=== PATIENT | female | born 1950 | race African-American/Black ===

== ENCOUNTER 2021-01-28 13:38 | Emergency (ER) | payer OTHER ==
[2021-01-28 13:48] VITALS: BP 127/57; PULSE 78; TEMP 97.4; BMI 27.3
== END 2021-01-28 17:04 | disposition home or self-care (01) ==
LOC: JERFT 13:38
DX: M79.604 Pain in right leg (principal); M25.521 Pain in right elbow
CPT/HCPCS: 73070-TC-RT-FY; 73562-TC-RT-FY; 73590-TC-RT-FY; 73610-TC-RT-FY; 73630-TC-RT-FY; 99285-25

== ENCOUNTER 2022-08-06 11:41 | Emergency (ER) | payer OTHER ==
[2022-08-06 12:00] VITALS: TEMP 97.5; BMI 23.4
[2022-08-06] MEDS ORDERED: FAMOTIDINE 20 MG/50 ML IVPB 20 MG/50 ML MG IVPB ONE ×2 (12:51→13:32)
[2022-08-06] MEDS ORDERED: ACETAMINOPHEN 1000 MG/100 ML BAG IVPB ONE (12:51)
[2022-08-06] MEDS ORDERED: ACETAMINOPHEN INJECTION 100 ML IVPB ONE (13:31)
[2022-08-06 14:20] LABS: BASO % 0.7 % (0-2.0); EOS % 0.2 % (0-4.5); HEMOGLOBIN 13.7 GM/dL (10.7-15.3); LYMPH % 31.1 % (8-40); MCH 32.7 pg (25.7-33.7); MCHC 33.4 g/dl (32.0-36.0); MEAN CELL VOLUME 97.9 fl (80-96); MEAN PLT VOLUME 9.2 fl (7.5-11.1); MONO % 6.2 % (3.8-10.2); NEUT % 61.8 % (42.8-82.8); PLATELET COUNT 264 10^3/uL (134-434); RBC 4.19 M/mm3 (3.60-5.2); RDW 13.2 % (11.6-15.6); WHITE BLOOD COUNT 8.1 K/mm3 (4.0-10.0)
[2022-08-06 14:21] LABS: PH,URINE 6.5 (5.0-8.0); URINE APPEARANCE CLEAR; URINE BILIRUBIN NEGATIVE (NEGATIVE); URINE COLOR YELLOW; URINE GLUCOSE (UA) NEGATIVE (NEGATIVE); URINE KETONE NEGATIVE (NEGATIVE); URINE LEUK ESTERASE NEGATIVE (NEGATIVE); URINE NITRITE NEGATIVE (NEGATIVE); URINE PROTEIN NEGATIVE (NEGATIVE); URINE UROBILINOGEN 0.2 mg/dL (0.2-1.0)
[2022-08-06 14:40] LABS: CHLORIDE 104 mmol/L (98-107); SODIUM 139 mmol/L (136-145)
[2022-08-06 14:42] LABS: CALCIUM 9.8 mg/dL (8.5-10.1)
[2022-08-06 14:43] LABS: BLOOD UREA NITROGEN 10.5 mg/dL (7-18); CO2 28 mmol/L (21-32); GLUCOSE,RANDOM 85 mg/dL (74-106); LIPASE 183 U/L (73-393); MAGNESIUM 2.2 mg/dL (1.8-2.4)
[2022-08-06 14:46] LABS: CREATININE 0.7 mg/dL (0.55-1.3); SGOT/AST 75 U/L (15-37)
[2022-08-06 14:47] LABS: BILIRUBIN,TOTAL 0.4 mg/dL (0.2-1); TOT PROT 9.1 g/dl (6.4-8.2)
[2022-08-06 14:49] LABS: ALK PHOS 114 U/L (45-117)
[2022-08-06 15:14] LABS: ANION GAP 6 MMOL/L (8-16); SGPT/ALT 26 U/L (13-61)
[2022-08-06] MEDS ORDERED: SODIUM CHLORIDE 0.9% 500 ML INFUS.BAG IV ONE (16:23)
[2022-08-06 16:25] LABS: ALBUMIN 3.8 g/dl (3.4-5.0); CALCIUM 9.7 mg/dL (8.5-10.1)
[2022-08-06 16:26] LABS: BLOOD UREA NITROGEN 9.7 mg/dL (7-18)
[2022-08-06 16:28] LABS: CREATININE 0.6 mg/dL (0.55-1.3)
[2022-08-06 16:30] LABS: BILIRUBIN,TOTAL 0.4 mg/dL (0.2-1); TOT PROT 8.2 g/dl (6.4-8.2)
[2022-08-06 19:28] VITALS: BP 127/63; PULSE 76; RESP 18
== END 2022-08-06 19:28 | disposition home or self-care (01) ==
LOC: JER 11:41
PROC: 3E0333Z Introduction of Anti-inflammatory into Peripheral Vein, Percutaneous Approach (ICD-10-PCS; principal; 2022-08-06)
PROC: 3E033GC Introduction of Other Therapeutic Substance into Peripheral Vein, Percutaneous Approach (ICD-10-PCS; 2022-08-06)
DX: R10.13 Epigastric pain (principal)
CPT/HCPCS: 36415; 71045-TC-FY; 72070-TC-FY; 74177-TC; 76705-TC; 80053; 81003; 83690; 83735; 84484; 85025; 93005; 93010; 99285-25; Q9967

== ENCOUNTER 2024-05-09 11:32 | Emergency (ER) | payer OTHER ==
[2024-05-09 11:38] VITALS: BP 121/68; PULSE 83; RESP 17; TEMP 97.9; BMI 27.3
[2024-05-09] MEDS ORDERED: ACETAMINOPHEN 325 MG TABLET (FP) ONE (12:09)
[2024-05-09] MEDS ORDERED: IBUPROFEN 400 MG TABLET (FP) PO ONE (12:10)
[2024-05-09] MEDS: ACETAMINOPHEN 325 MG TABLET (FP) PO ONE (12:12)
[2024-05-09] MEDS: IBUPROFEN 400 MG TABLET (FP) PO ONE (12:12)
== END 2024-05-09 14:14 | disposition home or self-care (01) ==
LOC: JERFT 11:32
DX: S99.922A Unspecified injury of left foot, initial encounter (principal); W10.8XXA Fall (on) (from) other stairs and steps, initial encounter
CPT/HCPCS: 73610-TC-LT-FY; 73630-TC-LT; 99283-25

== ENCOUNTER 2024-07-16 14:49 | Emergency (ER) | payer OTHER ==
[2024-07-16 14:59] VITALS: BMI 27.3
[2024-07-16] MEDS ORDERED: ACETAMINOPHEN INJECTION 100 ML ONE (15:53)
[2024-07-16] MEDS: ACETAMINOPHEN 1000 MG/100 ML BAG IVPB ONE (16:26)
[2024-07-16] MEDS: LACTATED RINGERS SOLUTION 1000 ML INFUS.BAG IV ONE (16:27)
[2024-07-16 16:34] LABS: BASO % 0.3 % (0-2.0); EOS % 0.1 % (0-4.5); HEMATOCRIT 42.5 % (32.4-45.2); LYMPH % 8.6 % (8-40); MCH 32.1 pg (25.7-33.7); MEAN CELL VOLUME 97.1 fl (80-96); MEAN PLT VOLUME 8.7 fl (7.5-11.1); MONO % 8.5 % (3.8-10.2); NEUT % 82.5 % (42.8-82.8); PLATELET COUNT 228 10^3/uL (134-434); RBC 4.38 M/mm3 (3.60-5.2); RDW 12.8 % (11.6-15.6); WHITE BLOOD COUNT 7.6 K/mm3 (4.0-10.0)
[2024-07-16 16:53] LABS: POTASSIUM 4.6 mmol/L (3.5-5.1)
[2024-07-16 16:55] LABS: ALBUMIN 4.1 g/dl (3.4-5.0)
[2024-07-16 16:56] LABS: CALCIUM 9.4 mg/dL (8.5-10.1)
[2024-07-16 16:57] LABS: BLOOD UREA NITROGEN 8.4 mg/dL (7-18)
[2024-07-16 17:00] LABS: CREATININE 0.7 mg/dL (0.55-1.3)
[2024-07-16 17:01] LABS: BILIRUBIN,TOTAL 0.6 mg/dL (0.2-1); TOT PROT 8.9 g/dl (6.4-8.2)
[2024-07-16 17:42] LABS: PH,URINE 6.5 (5.0-8.0); URINE APPEARANCE CLEAR; URINE BILIRUBIN NEGATIVE (NEGATIVE); URINE COLOR YELLOW; URINE GLUCOSE (UA) NEGATIVE (NEGATIVE); URINE KETONE 1+ (NEGATIVE); URINE LEUK ESTERASE NEGATIVE (NEGATIVE); URINE NITRITE NEGATIVE (NEGATIVE); URINE PROTEIN NEGATIVE (NEGATIVE); URINE UROBILINOGEN 0.2 mg/dL (0.2-1.0)
[2024-07-16 17:56] LABS: HIV INTERPRETATION NEGATIVE (NEGATIVE)
[2024-07-16 19:23] VITALS: BP 106/52; PULSE 95; RESP 18; TEMP 99.5
== END 2024-07-16 20:35 | disposition home or self-care (01) ==
LOC: JER 14:49
PROC: 3E033NZ Introduction of Analgesics, Hypnotics, Sedatives into Peripheral Vein, Percutaneous Approach (ICD-10-PCS; principal; 2024-07-16)
DX: M54.6 Pain in thoracic spine (principal); R63.0 Anorexia; R50.9 Fever, unspecified; R00.0 Tachycardia, unspecified; R06.02 Shortness of breath; Z20.822 Contact with and (suspected) exposure to COVID-19
CPT/HCPCS: 0241U-QW; 36415; 71046-TC-FY; 74176-TC; 80053; 81003; 85025; 86803; 87086; 87389; 99285-25; J0131

== ENCOUNTER 2024-07-20 12:59 | Inpatient (IN) | payer OTHER ==
[2024-07-20 13:06] VITALS: BMI 27.5
[2024-07-20 15:16] LABS: BASO % 0.9 % (0-2.0); HEMATOCRIT 44.2 % (32.4-45.2); HEMOGLOBIN 14.8 GM/dL (10.7-15.3); LYMPH % 20.1 % (8-40); MCH 31.9 pg (25.7-33.7); MCHC 33.4 g/dl (32.0-36.0); MEAN CELL VOLUME 95.6 fl (80-96); MEAN PLT VOLUME 8.7 fl (7.5-11.1); MONO % 19.2 % (3.8-10.2); NEUT % 59.8 % (42.8-82.8); PLATELET COUNT 187 10^3/uL (134-434); RBC 4.63 M/mm3 (3.60-5.2); RDW 12.8 % (11.6-15.6); WHITE BLOOD COUNT 4.2 K/mm3 (4.0-10.0)
[2024-07-20 15:41] LABS: POTASSIUM 3.6 mmol/L (3.5-5.1)
[2024-07-20 15:44] LABS: ALBUMIN 3.7 g/dl (3.4-5.0); BLOOD UREA NITROGEN 10.4 mg/dL (7-18)
[2024-07-20 15:46] LABS: CREATININE 0.7 mg/dL (0.55-1.3)
[2024-07-20 15:48] LABS: BILIRUBIN,TOTAL 0.9 mg/dL (0.2-1); TOT PROT 8.4 g/dl (6.4-8.2)
[2024-07-20] MEDS ORDERED: PIPERACILLIN/TAZOB 3.375 GM 3.375 GM/50 ML BAG IVPB ONE (15:56)
[2024-07-20] MEDS: PIPERACILLIN/TAZOB 3.375 GM 3.375 GM in DEXTROSE 5%-WATER - 50 ML IVPB SCH (16:27)
[2024-07-20 16:34] LABS: HIV INTERPRETATION NEGATIVE (NEGATIVE)
[2024-07-20] MEDS ORDERED: PIPERACILLIN/TAZOB 3.375 GM 3.375 GM in DEXTROSE 5%-WATER - 50 ML IVPB SCH (18:00)
[2024-07-20] MEDS: LACTATED RINGERS SOLUTION 1,000 ML/1,000 ML INFUS.BAG IV SCH (18:24)
[2024-07-21] MEDS: ACETAMINOPHEN 500 MG TABLET (FP) PO PRN (05:42)
[2024-07-21 08:44] LABS: HEMATOCRIT 39.8 % (32.4-45.2); HEMATOCRIT 40.1 % (32.4-45.2); HEMOGLOBIN 13.5 GM/dL (10.7-15.3); HEMOGLOBIN 13.6 GM/dL (10.7-15.3); MCH 32.3 pg (25.7-33.7); MCH 32.4 pg (25.7-33.7); MCHC 33.8 g/dl (32.0-36.0); MCHC 33.9 g/dl (32.0-36.0); MEAN CELL VOLUME 95.4 fl (80-96); MEAN CELL VOLUME 95.8 fl (80-96); MEAN PLT VOLUME 9.1 fl (7.5-11.1); PLATELET COUNT 165 10^3/uL (134-434); PLATELET COUNT 174 10^3/uL (134-434); RBC 4.17 M/mm3 (3.60-5.2); RBC 4.18 M/mm3 (3.60-5.2); RDW 12.6 % (11.6-15.6); RDW 12.7 % (11.6-15.6); WHITE BLOOD COUNT 4.5 K/mm3 (4.0-10.0); WHITE BLOOD COUNT 4.6 K/mm3 (4.0-10.0)
[2024-07-21 08:55] LABS: POTASSIUM 3.7 mmol/L (3.5-5.1)
[2024-07-21 08:58] LABS: ALBUMIN 3.1 g/dl (3.4-5.0); CALCIUM 8.5 mg/dL (8.5-10.1)
[2024-07-21 09:01] LABS: CREATININE 0.7 mg/dL (0.55-1.3)
[2024-07-21 09:02] LABS: INR 1.36 (0.83-1.09); PROTHROMBIN TIME (PATIENT) 15.5 SEC (9.7-13.0)
[2024-07-21 09:03] LABS: BILIRUBIN,TOTAL 1.3 mg/dL (0.2-1); TOT PROT 7.3 g/dl (6.4-8.2)
[2024-07-21] MEDS ORDERED: MIDAZOLAM HCL 2 MG/2 ML SINGLE DOSE VIAL ONE (11:37)
[2024-07-21] MEDS ORDERED: KETOROLAC TROMETHAMINE 30 MG/1 ML VIAL ONE (11:37)
[2024-07-21] MEDS: INDOMETHACIN 50 MG RECTAL SUPPOSITORY PR ONE (12:45)
[2024-07-21] MEDS ORDERED: SUGAMMADEX SODIUM 200 MG/2 ML VIAL ONE (12:45)
[2024-07-21] MEDS: CEFTRIAXONE 1 GM in DEXTROSE 5%-WATER - 50 ML IVPB SCH ×2 (15:15→15:21)
[2024-07-21] MEDS: LACTATED RINGERS SOLUTION 1,000 ML/1,000 ML INFUS.BAG IV SCH (15:20)
[2024-07-22 08:52] LABS: HEMATOCRIT 37.6 % (32.4-45.2); HEMOGLOBIN 12.7 GM/dL (10.7-15.3); MCH 32.1 pg (25.7-33.7); MCHC 33.7 g/dl (32.0-36.0); MEAN CELL VOLUME 95.3 fl (80-96); PLATELET COUNT 193 10^3/uL (134-434); RBC 3.94 M/mm3 (3.60-5.2); WHITE BLOOD COUNT 9.3 K/mm3 (4.0-10.0)
[2024-07-22 09:12] LABS: POTASSIUM 3.8 mmol/L (3.5-5.1)
[2024-07-22 09:21] LABS: CREATININE 0.6 mg/dL (0.55-1.3)
[2024-07-22 09:22] LABS: CALCIUM 8.8 mg/dL (8.5-10.1)
[2024-07-22 09:23] LABS: ALBUMIN 2.8 g/dl (3.4-5.0); BILIRUBIN,TOTAL 3.3 mg/dL (0.2-1); BLOOD UREA NITROGEN 7.7 mg/dL (7-18); TOT PROT 6.8 g/dl (6.4-8.2)
[2024-07-22 09:25] LABS: BILIRUBIN,DIRECT 2.3 mg/dL (0.0-0.2); MAGNESIUM 1.8 mg/dL (1.8-2.4)
[2024-07-22] MEDS: PIPERACILLIN/TAZOB 3.375 GM 3.375 GM in DEXTROSE 5%-WATER - 50 ML IVPB SCH (14:42)
[2024-07-22] MEDS ORDERED: PIPERACILLIN/TAZOB 3.375 GM 3.375 GM in DEXTROSE 5%-WATER - 50 ML IVPB SCH (18:00)
[2024-07-22] MEDS: ONDANSETRON 4 MG/2 ML VIAL IVPUSH PRN (19:25)
[2024-07-22] MEDS ORDERED: ONDANSETRON 4 MG/2 ML VIAL IVPUSH PRN (19:38)
[2024-07-22] MEDS: ACETAMINOPHEN 1000 MG/100 ML BAG IVPB ONE (19:50)
[2024-07-22] MEDS ORDERED: ACETAMINOPHEN INJECTION 100 ML ONE (19:58)
[2024-07-22] MEDS: LACTATED RINGERS SOLUTION 1,000 ML IV SCH (20:02)
[2024-07-22] MEDS ORDERED: METOCLOPRAMIDE HCL INJECTION 10 MG/2 ML VIAL ONE (20:07)
[2024-07-23 09:28] LABS: HEMATOCRIT 37.2 % (32.4-45.2); HEMOGLOBIN 12.6 GM/dL (10.7-15.3); MCH 32.4 pg (25.7-33.7); MCHC 33.7 g/dl (32.0-36.0); MEAN CELL VOLUME 95.9 fl (80-96); MEAN PLT VOLUME 9.5 fl (7.5-11.1); PLATELET COUNT 235 10^3/uL (134-434); RBC 3.88 M/mm3 (3.60-5.2); RDW 13.2 % (11.6-15.6); WHITE BLOOD COUNT 8.8 K/mm3 (4.0-10.0)
[2024-07-23 09:42] LABS: POTASSIUM 3.9 mmol/L (3.5-5.1)
[2024-07-23 09:47] LABS: ALBUMIN 2.9 g/dl (3.4-5.0); CALCIUM 8.4 mg/dL (8.5-10.1); MAGNESIUM 1.6 mg/dL (1.8-2.4)
[2024-07-23 09:48] LABS: BLOOD UREA NITROGEN 7.4 mg/dL (7-18)
[2024-07-23 09:50] LABS: PHOSPHOROUS 3.2 mg/dL (2.5-4.9)
[2024-07-23 09:51] LABS: CREATININE 0.7 mg/dL (0.55-1.3)
[2024-07-23 09:52] LABS: BILIRUBIN,DIRECT 4.3 mg/dL (0.0-0.2); TOT PROT 6.9 g/dl (6.4-8.2)
[2024-07-24 09:39] LABS: BASO % 0.5 % (0-2.0); HEMATOCRIT 37.4 % (32.4-45.2); HEMOGLOBIN 12.8 GM/dL (10.7-15.3); INR 2.13 (0.83-1.09); LYMPH % 19.2 % (8-40); MCH 32.3 pg (25.7-33.7); MCHC 34.2 g/dl (32.0-36.0); MEAN CELL VOLUME 94.3 fl (80-96); MEAN PLT VOLUME 9.7 fl (7.5-11.1); MONO % 11.5 % (3.8-10.2); NEUT % 68.8 % (42.8-82.8); PLATELET COUNT 272 10^3/uL (134-434); PROTHROMBIN TIME (PATIENT) 23.5 SEC (9.7-13.0); RBC 3.97 M/mm3 (3.60-5.2); RDW 13.4 % (11.6-15.6); WHITE BLOOD COUNT 8.3 K/mm3 (4.0-10.0)
[2024-07-24 09:46] LABS: POTASSIUM 3.6 mmol/L (3.5-5.1)
[2024-07-24 09:48] LABS: CALCIUM 8.3 mg/dL (8.5-10.1)
[2024-07-24 09:49] LABS: ALBUMIN 2.7 g/dl (3.4-5.0); BLOOD UREA NITROGEN 5.7 mg/dL (7-18)
[2024-07-24 09:51] LABS: BILIRUBIN,DIRECT 6.2 mg/dL (0.0-0.2)
[2024-07-24 09:52] LABS: CREATININE 0.6 mg/dL (0.55-1.3)
[2024-07-24 09:53] LABS: TOT PROT 6.7 g/dl (6.4-8.2)
[2024-07-24 10:33] LABS: BILIRUBIN,TOTAL 9.1 mg/dL (0.2-1)
[2024-07-24] MEDS: PHYTONADIONE 10 MG/1 ML AMP IVPB ONE (16:33)
[2024-07-25 10:11] LABS: HEMATOCRIT 37.4 % (32.4-45.2); HEMOGLOBIN 12.8 GM/dL (10.7-15.3); MCH 32.2 pg (25.7-33.7); MCHC 34.1 g/dl (32.0-36.0); MEAN CELL VOLUME 94.3 fl (80-96); MEAN PLT VOLUME 9.6 fl (7.5-11.1); PLATELET COUNT 344 10^3/uL (134-434); RBC 3.97 M/mm3 (3.60-5.2); RDW 13.8 % (11.6-15.6); WHITE BLOOD COUNT 10.4 K/mm3 (4.0-10.0)
[2024-07-25 10:16] LABS: INR 1.38 (0.83-1.09); PROTHROMBIN TIME (PATIENT) 15.7 SEC (9.7-13.0)
[2024-07-25] MEDS: ACETYLCYSTEINE IVPB ONE (10:25)
[2024-07-25] MEDS: DEXTROSE 5% IVPB ONE (10:25)
[2024-07-25] MEDS: WATER IVPB ONE (10:25)
[2024-07-25 10:30] LABS: ALBUMIN 2.7 g/dl (3.4-5.0)
[2024-07-25 10:34] LABS: BILIRUBIN,DIRECT 11.5 mg/dL (0.0-0.2)
[2024-07-25 10:36] LABS: TOT PROT 6.8 g/dl (6.4-8.2)
[2024-07-25 10:37] LABS: ALK PHOS 273 U/L (45-117)
[2024-07-25 10:49] LABS: SGOT/AST 1520 U/L (15-37); SGPT/ALT 2662 U/L (13-61)
[2024-07-25 11:02] LABS: CHLORIDE 97 mmol/L (98-107); POTASSIUM 3.8 mmol/L (3.5-5.1); SODIUM 135 mmol/L (136-145)
[2024-07-25 11:07] LABS: ALBUMIN 2.7 g/dl (3.4-5.0); BLOOD UREA NITROGEN 6.4 mg/dL (7-18); CALCIUM 8.4 mg/dL (8.5-10.1)
[2024-07-25 11:08] LABS: ANION GAP 9 mmol/L (4-13); CO2 29 mmol/L (21-32); GLUCOSE,RANDOM 86 mg/dL (74-106); MAGNESIUM 1.9 mg/dL (1.8-2.4)
[2024-07-25 11:10] LABS: CREATININE 0.5 mg/dL (0.55-1.3); IRON SERUM 185 ug/dL (50-175); PHOSPHOROUS 2.3 mg/dL (2.5-4.9)
[2024-07-25 11:11] LABS: TOTAL IRON BINDING CAPACITY 202 ug/dL (250-450)
[2024-07-25 11:12] LABS: TOT PROT 7.1 g/dl (6.4-8.2)
[2024-07-25 11:13] LABS: ALK PHOS 277 U/L (45-117)
[2024-07-25 11:16] LABS: BILIRUBIN,TOTAL 16.1 mg/dL (0.2-1)
[2024-07-25 11:29] LABS: SGOT/AST 1544 U/L (15-37); SGPT/ALT 2692 U/L (13-61)
[2024-07-25] MEDS: ACETYLCYSTEINE INJECTION 20% 3,200 MG in DEXTROSE 5%-WATER - 500 ML IVPB ONE (11:38)
[2024-07-25] MEDS: ACETYLCYSTEINE INJECTION 20% 6,400 MG in DEXTROSE 5%-WATER - 1,000 ML IVPB ONE (16:20)
[2024-07-25] MEDS: MAGNESIUM SULF 50% (8.12 MEQ/2 ML-1 GM VIAL) IVPB ONE (18:18)
[2024-07-25 19:35] LABS: HEMATOCRIT 39.1 % (32.4-45.2); HEMOGLOBIN 13.1 GM/dL (10.7-15.3); MCH 31.8 pg (25.7-33.7); MCHC 33.5 g/dl (32.0-36.0); MEAN CELL VOLUME 94.7 fl (80-96); MEAN PLT VOLUME 9.1 fl (7.5-11.1); PLATELET COUNT 380 10^3/uL (134-434); RBC 4.13 M/mm3 (3.60-5.2); RDW 13.9 % (11.6-15.6); WHITE BLOOD COUNT 11.7 K/mm3 (4.0-10.0)
[2024-07-25 19:42] LABS: CHLORIDE 96 mmol/L (98-107); POTASSIUM 3.3 mmol/L (3.5-5.1); SODIUM 135 mmol/L (136-145)
[2024-07-25 19:44] LABS: CALCIUM 8.5 mg/dL (8.5-10.1)
[2024-07-25 19:45] LABS: ALBUMIN 2.6 g/dl (3.4-5.0); ANION GAP 6 mmol/L (4-13); BLOOD UREA NITROGEN 5.6 mg/dL (7-18); CO2 33 mmol/L (21-32); GLUCOSE,RANDOM 129 mg/dL (74-106)
[2024-07-25 19:48] LABS: BILIRUBIN,DIRECT 12.5 mg/dL (0.0-0.2); CREATININE 0.6 mg/dL (0.55-1.3); PHOSPHOROUS 1.4 mg/dL (2.5-4.9)
[2024-07-25 19:51] LABS: ALK PHOS 264 U/L (45-117)
[2024-07-25 20:04] LABS: BILIRUBIN,TOTAL 17.5 mg/dL (0.2-1); SGOT/AST 1059 U/L (15-37); SGPT/ALT 2099 U/L (13-61)
[2024-07-26] MEDS: POTASSIUM CHLORIDE TABS 20 MEQ TABLET.ER (FP) PO ONE (08:06)
[2024-07-26 11:18] LABS: INR 1.35 (0.83-1.09); PROTHROMBIN TIME (PATIENT) 15.1 SEC (9.7-13.0)
[2024-07-26 11:26] LABS: ALBUMIN 2.5 g/dl (3.4-5.0)
[2024-07-26 11:27] LABS: SGOT/AST 759 U/L (15-37)
[2024-07-26 11:29] LABS: ALK PHOS 269 U/L (45-117); BILIRUBIN,DIRECT 14.9 mg/dL (0.0-0.2)
[2024-07-26 11:46] LABS: BILIRUBIN,TOTAL 20.6 mg/dL (0.2-1); SGPT/ALT 1899 U/L (13-61)
[2024-07-26 15:42] LABS: HEMATOCRIT 37.7 % (32.4-45.2); HEMOGLOBIN 12.4 GM/dL (10.7-15.3); MCH 31.5 pg (25.7-33.7); MCHC 32.8 g/dl (32.0-36.0); MEAN PLT VOLUME 8.6 fl (7.5-11.1); PLATELET COUNT 379 10^3/uL (134-434); RBC 3.93 M/mm3 (3.60-5.2); RDW 13.9 % (11.6-15.6); WHITE BLOOD COUNT 10.5 K/mm3 (4.0-10.0)
[2024-07-27 02:17] VITALS: RESP 18
[2024-07-27 10:19] LABS: INR 1.24 (0.83-1.09); PROTHROMBIN TIME (PATIENT) 14.2 SEC (9.7-13.0)
[2024-07-27 10:23] LABS: HEMATOCRIT 33.7 % (32.4-45.2); HEMOGLOBIN 11.3 GM/dL (10.7-15.3); MCH 32.2 pg (25.7-33.7); MCHC 33.7 g/dl (32.0-36.0); MEAN CELL VOLUME 95.8 fl (80-96); MEAN PLT VOLUME 8.4 fl (7.5-11.1); PLATELET COUNT 413 10^3/uL (134-434); RBC 3.52 M/mm3 (3.60-5.2); WHITE BLOOD COUNT 10.3 K/mm3 (4.0-10.0)
[2024-07-27 10:36] LABS: CHLORIDE 101 mmol/L (98-107); POTASSIUM 3.7 mmol/L (3.5-5.1); SODIUM 137 mmol/L (136-145)
[2024-07-27 10:39] LABS: ALBUMIN 2.4 g/dl (3.4-5.0); BLOOD UREA NITROGEN 6.4 mg/dL (7-18); GLUCOSE,RANDOM 128 mg/dL (74-106)
[2024-07-27 10:41] LABS: ANION GAP 4 mmol/L (4-13); CALCIUM 8.6 mg/dL (8.5-10.1); CO2 32 mmol/L (21-32); CREATININE 0.6 mg/dL (0.55-1.3)
[2024-07-27 10:42] LABS: SGOT/AST 391 U/L (15-37)
[2024-07-27 10:43] LABS: TOT PROT 6.7 g/dl (6.4-8.2)
[2024-07-27 10:44] LABS: BILIRUBIN,DIRECT 15.3 mg/dL (0.0-0.2)
[2024-07-27 10:48] LABS: ALK PHOS 265 U/L (45-117)
[2024-07-27 10:51] LABS: BILIRUBIN,TOTAL 19.9 mg/dL (0.2-1); SGPT/ALT 1281 U/L (13-61)
[2024-07-27 20:39] VITALS: PULSE 86
[2024-07-28 10:07] LABS: INR 1.2 (0.83-1.09); PROTHROMBIN TIME (PATIENT) 13.5 SEC (9.7-13.0)
[2024-07-28 10:23] LABS: CHLORIDE 104 mmol/L (98-107); POTASSIUM 3.7 mmol/L (3.5-5.1); SODIUM 140 mmol/L (136-145)
[2024-07-28 10:27] LABS: ALBUMIN 2.4 g/dl (3.4-5.0); ANION GAP 7 mmol/L (4-13); BLOOD UREA NITROGEN 5.6 mg/dL (7-18); CALCIUM 8.7 mg/dL (8.5-10.1); CO2 29 mmol/L (21-32); MAGNESIUM 2.2 mg/dL (1.8-2.4)
[2024-07-28 10:28] LABS: GLUCOSE,RANDOM 154 mg/dL (74-106)
[2024-07-28 10:30] LABS: BILIRUBIN,DIRECT 12.1 mg/dL (0.0-0.2); CREATININE 0.6 mg/dL (0.55-1.3); SGOT/AST 242 U/L (15-37); SGPT/ALT 918 U/L (13-61)
[2024-07-28 10:31] LABS: PHOSPHOROUS 2.4 mg/dL (2.5-4.9)
[2024-07-28 10:32] LABS: TOT PROT 6.8 g/dl (6.4-8.2)
[2024-07-28 10:33] LABS: ALK PHOS 260 U/L (45-117)
[2024-07-28 10:44] LABS: BILIRUBIN,TOTAL 15.6 mg/dL (0.2-1)
[2024-07-28 11:16] VITALS: BP 127/68; TEMP 98.4
[2024-07-29 21:09] LABS: IG G QN IMMUNOGLOBULIN 1895 mg/dL (586-1602); IGG SUBCLASS 1 1023 mg/dL (248-810); IGG SUBCLASS 2 332 mg/dL (130-555); IGG SUBCLASS 3 135 mg/dL (15-102)
== END 2024-07-28 15:34 | disposition home or self-care (01) | DRG 445 ==
LOC: JER 12:59 → JERBED 15:23 → J6S 16:35
PROVIDERS: ADMIT Internal Medicine; ATTEND Internal Medicine
PROC: 0FC98ZZ Extirpation of Matter from Common Bile Duct, Via Natural or Artificial Opening Endoscopic (ICD-10-PCS; 2024-07-21)
PROC: BF10YZZ Fluoroscopy of Bile Ducts using Other Contrast (ICD-10-PCS; 2024-07-21)
PROC: 0FD98ZX Extraction of Common Bile Duct, Via Natural or Artificial Opening Endoscopic, Diagnostic (ICD-10-PCS; 2024-07-22)
PROC: 0F798DZ Dilation of Common Bile Duct with Intraluminal Device, Via Natural or Artificial Opening Endoscopic (ICD-10-PCS; principal; 2024-07-22 12:30)
DX: K80.50 Calculus of bile duct without cholangitis or cholecystitis without obstruction (principal); B15.9 Hepatitis A without hepatic coma; D68.9 Coagulation defect, unspecified; R11.2 Nausea with vomiting, unspecified; R10.9 Unspecified abdominal pain; R74.8 Abnormal levels of other serum enzymes; K76.0 Fatty (change of) liver, not elsewhere classified; K72.90 Hepatic failure, unspecified without coma; E80.6 Other disorders of bilirubin metabolism
CPT/HCPCS: 36415; 74181-TC; 74330-TC; 76000-TC-FY; 76705-TC; 80048; 80053; 80076; 80307; 82140; 82728; 82784; 82787; 82962; 83516; 83540; 83550; 83605; 83690; 83735; 83883; 84100; 85025; 85027; 85610; 86038; 86140; 86709; 86803; 86850; 86900; 86901; 87040; 87340; 87389; 88104; 88305-TC; 94760; 99285-25; J0131

== ENCOUNTER 2024-09-15 05:21 | Day surgery (SDC) | payer OTHER ==
[2024-09-14 12:02] VITALS: BMI 27.7
[2024-09-15 07:14] VITALS: TEMP 98
[2024-09-15 10:05] VITALS: RESP 16
[2024-09-15 10:36] VITALS: BP 105/51; PULSE 70
== END 2024-09-15 09:45 | disposition home or self-care (01) ==
LOC: JASU-ENDO 05:21
PROVIDERS: ATTEND Internal Medicine Gastroenterology
PROC: 0DC98ZZ Extirpation of Matter from Duodenum, Via Natural or Artificial Opening Endoscopic (ICD-10-PCS; principal; 2024-09-15 08:00)
DX: Z46.59 Encounter for fitting and adjustment of other gastrointestinal appliance and device (principal); Z96.89 Presence of other specified functional implants
CPT/HCPCS: 82962; 88300-TC